=== PATIENT | female | born 1990 | race Caucasian/White ===

== ENCOUNTER 2018-07-23 16:07 | Emergency (ER) | payer BC ==
[2018-07-23 16:27] VITALS: BP 113/77
--- NOTE | 2018-07-23 17:13 | EDM.PDOC ---
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 Patient notes that she is around 10 weeks . She states that she developed some lower abdominal cramping and bleeding today. She has had 2 previous visits and has established with OB, by the last name of Alex at [facility] in [place]. She states that she has been taking progesterone 200 mg vaginally every at bedtime. She is A3. She has had 3 spontaneous miscarriages. She states that the bleeding is not heavy, however it is enough to be there when she wipes. She would characterize it to be roughly a handful in nature, she has not noticed any clots. She states that the was established as an intrauterine . She did have her labs drawn on June 15, and her beta hCG at that time was 1955. Her progesterone level was 24.3. She denies any other abdominal symptoms, no fevers /chills. Lower Abdomen Pain Score (Numeric/FACES): 2 - Related Data Allergies Allergy/AdvReac Type Severity Reaction Status Date / Time adalimumab Allergy Rash Verified 07/23/18 16:29 albuterol Allergy Nausea Verified 06/17/16 21:17 CDT etanercept [From Enbrel] Allergy Rash Verified 07/23/18 16:29 methotrexate Allergy Rash Verified 06/17/16 21:17 CDT Sulfa (Sulfonamide Allergy Rash Verified 06/17/16 21:17 CDT Antibiotics) Home Meds: Home Meds Progesterone,Micronized [Progesterone] 200 mg VAG DAILY 07/23/18 [History] Past Medical History - Past Health History Medical/Surgical History: Denies Medical/Surgical History 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: 2 and 2 miscarriage Musculoskeletal History: Reports: Arthritis - Past Surgical History Other Musculoskeletal Surgeries/Procedures:: broken right foot and left hand Social & Family History - Family History Family Medical History: Noncontributory - Tobacco Use Smoking Status *Q: Never Smoker - Caffeine Use Caffeine Use: Reports: Coffee, Soda - Recreational Drug Use Recreational Drug Use: No ED ROS GENERAL - Review of Systems Review Of Systems: See Below Constitutional: Denies: Fever, Chills HEENT: Reports: No Symptoms Respiratory: Reports: No Symptoms Cardiovascular: Reports: No Symptoms Endocrine: Reports: No Symptoms GI/Abdominal: Reports: Abdominal Pain (suprapubic tenderness) : Reports: Other (vaginal bleeding). Denies: Dysuria, Flank Pain Musculoskeletal: Reports: No Symptoms Skin: Reports: No Symptoms Neurological: Reports: No Symptoms Psychiatric: Reports: No Symptoms Hematologic/Lymphatic: Reports: No Symptoms ED EXAM - Physical Exam Exam: See Below Exam Limited By: No Limitations General Appearance: Alert, WD/WN, No Apparent Distress Ears: Normal External Exam Respiratory/Chest: No Respiratory Distress, Lungs Clear, Normal Breath Sounds, No Accessory Muscle Use, Chest Non-Tender Cardiovascular: Normal Peripheral Pulses, Regular Rate, Rhythm, No Murmur GI/Abdominal Exam: Normal Bowel Sounds, Soft, No Distention, No Mass, Tender ( suprapubically) (Female) Exam: Normal Bimanual Exam (pt states that she has some tenderness with exam), Normal External Exam, Normal Speculum Exam, Other (brownish granular tissue noted in tiny clumps). No: Adnexal Tenderness, Cervical Dilatation, Tissue Present in Cervix/Vagina, Vaginal Bleeding Heart Tones: Not [place] Movement: Not Appreciated Extremities: Normal Inspection, Normal Capillary Refill Neurological: Alert, Oriented, Normal Cognition, No Motor/Sensory Deficits Psychiatric: Normal Affect, Normal Mood Skin Exam: Warm, Dry, Intact, Normal Color, No Rash Course - Vital Signs Last Recorded V/S: Last Vital Signs Temp 98.1 F 07/23/18 16:23 Pulse 78 07/23/18 16:23 Resp 16 07/23/18 16:23 BP 113/77 07/23/18 16:23 Pulse Ox 100 07/23/18 16:23 - Orders/Labs/Meds Orders: Active Orders 24 hr Category Date Time Status OB Transvaginal [US] Stat Exams 07/23/18 16:24 Ordered HCG QUANTITATIVE [CHEM] Stat Lab 07/23/18 17:52 Ordered PATIENT RETYPE [BBK] Routine Lab 07/23/18 18:23 Ordered Labs: Laboratory Tests 07/23/18 07/23/18 07/23/18 Range/Units 16:49 16:49 16:49 WBC 7.86 (3.98-10.04) K/mm3 RBC 4.33 (3.98-5.22) M/mm3 Hgb 12.7 (11.2-15.7) gm/L Hct 37.9 (34.1-44.9) % MCV 87.5 (79.4-94.8) fl MCH 29.3 (25.6-32.2) pg MCHC 33.5 (32.2-35.5) g/dl RDW Std Deviation 39.5 (36.4-46.3) fL Plt Count 268 (182-369) K/mm3 MPV 9.5 (9.4-12.3) fl Neut % (Auto) 64.9 (34.0-71.1) % Lymph % (Auto) 22.9 (19.3-51.7) % [place] % (Auto) 10.1 (4.7-12.5) % Eos % (Auto) 1.5 (0.7-5.8) Baso % (Auto) 0.3 (0.1-1.2) % Neut # (Auto) 5.11 (1.56-6.13) K/mm3 Lymph # (Auto) 1.80 (1.18-3.74) K/mm3 [place] # (Auto) 0.79 H (0.24-0.36) K/mm3 Eos # (Auto) 0.12 (0.04-0.36) K/mm3 Baso # (Auto) 0.02 (0.01-0.08) K/mm3 HCG, Qual Positive H (NEGATIVE) Blood Type A POSITIVE Gel Antibody Screen Negative - Re-Assessments/Exams Free Text/Narrative Re-Assessment/Exam: 07/23/18 17:13 Patient presents to the ED for the evaluation of a possible miscarriage. Have ordered labs and a transvaginal ultrasound for further evaluation. 07/23/18 18:28 Patient's ultrasound is complete and read as a single live intrauterine approximately 10 week 1 day gestational age. The heart rate was 154 bpm. No fluid noted, no adnexal masses. Still waiting on quantitative hCG from lab as it got ordered late. Departure - Departure Time of Disposition: 18:50 Disposition: Home, Self-Care 01 Condition: Fair Clinical Impression: Vaginal bleeding during , Threatened - Discharge Information *PRESCRIPTION DRUG MONITORING PROGRAM REVIEWED*: No *COPY OF PRESCRIPTION DRUG MONITORING REPORT IN PATIENT LIVIER: No Instructions: Vaginal Bleeding During , First Trimester, Threatened Miscarriage, [id number] Referrals: PCP,Not In Area [Primary Care Provider] - Forms: ED Department Discharge Additional Instructions: You have been evaluated in the ED today for vaginal bleeding during . Your ultrasound showed a single live intrauterine approximately 10 weeks 1 day gestational age with a heart rate of 154 bpm. Please take it easy over the next few days, no undue stress, and drink plenty of fluids. Recommend close follow-up with your OB provider within the next week. Please return to the ED if your symptoms should change or worsen. - My Orders Last 24 Hours: My Active Orders 07/23/18 16:24 OB Transvaginal [US] Stat 07/23/18 17:52 HCG QUANTITATIVE [CHEM] Stat 07/23/18 18:23 PATIENT RETYPE [BBK] Routine - Assessment/Plan Last 24 Hours: My Active Orders 07/23/18 16:24 OB Transvaginal [US] Stat 07/23/18 17:52 HCG QUANTITATIVE [CHEM] Stat 07/23/18 18:23 PATIENT RETYPE [BBK] Routine
--- NOTE | 2018-07-25 10:21 | US ---
First trimester obstetrical ultrasound: Multiple real-time images were obtained transvaginally. Comparison: No previous study for current . Dates: Current ultrasound: YASIR 02/17/19, gestational age 10 weeks 1 day Single intrauterine gestation is seen. Embryo and yolk sac are present. No subchorionic hemorrhage is identified. Maternal right ovary is unremarkable. Maternal left ovary shows two small cysts which are believed to be incidental. Measurements: [place]-rump length: 3.31 cm - 10 weeks 1 day Heart rate: 154 bpm Impression: 1. Single intrauterine gestation, dates as noted above. 2. No complicating process is seen by ultrasound at this time. No etiology identified for the patient's bleeding. Diagnostic code #1 I agree with preliminary report from [facility], finalized on 07/23/18, 7:09 PM Central Time
== END 2018-07-23 19:00 | disposition home or self-care (01) ==
LOC: JD.ED 16:07
DX: O20.0 Threatened abortion (principal); Z3A.10 10 weeks gestation of pregnancy; Z88.8 Allergy status to other drugs, medicaments and biological substances; Z88.2 Allergy status to sulfonamides
CPT/HCPCS: 36415; 76817; 76817-26; 84702; 84703; 85025; 86850; 86900; 86901; 99283; 99284-25